=== PATIENT | male | born 1940 | race Caucasian/White ===

== ENCOUNTER 2017-04-21 20:23 | Inpatient (IN) | payer OTHER ==
[~2017-04-21] VITALS: Ht 167.6 cm; Wt 74.5 kg
[2017-04-21] MEDS ORDERED: DIPH,PERTUSS(ACELL),TET VAC/PF 0.5 ML IM-VACC ONE ×2 (21:00→21:05)
[2017-04-21] MEDS ORDERED: SODIUM CHLORIDE FLUSH 10ML SYR IVF ONE (21:00)
[2017-04-21 21:04] LABS: BLOOD UREA NITROGEN 31 mg/dL (7-18)
[2017-04-21] MEDS ORDERED: BACITRACIN ZINC OINT 500U/GM, 0.9 GM ONE (21:05)
[2017-04-21 21:10] LABS: IS PT STATUS REG ER OR PRE ER? YES
[2017-04-21] MEDS ORDERED: LEVOFLOXACIN/PMX 750MG/150ML 150 ML ONE (21:51)
[2017-04-21] MEDS ORDERED: LEVOFLOXACIN/PMX 750MG/150ML 150 ML IV ONE (22:00)
[2017-04-21] MEDS ORDERED: DOCUSATE 100 MG CAPSULE PO PRN (23:30)
[2017-04-21] MEDS ORDERED: POLYETHYLENE GLYCOL 17 GM PACKET PO PRN (23:30)
[2017-04-21 23:36] VITALS: BP 150/83
[2017-04-22 07:27] VITALS: BP 134/84
[2017-04-22] MEDS ORDERED: LEFLUNOMIDE 20 MG TABLET PO SCH (09:00)
[2017-04-22 09:28] LABS: OCCBLD OBC PASS
[2017-04-22] MEDS ORDERED: OMNIPAQUE 350 MG/ML, 100ML BOTTLE ONE (10:55)
[2017-04-22 13:39] VITALS: BP 145/76
[2017-04-22 17:02] LABS: ASPARTATE AMINO TRANSFERASE 26 U/L (15-37); BLOOD UREA NITROGEN 17 mg/dL (7-18)
[2017-04-22] MEDS: HEPARIN 5,000 UNITS/ML, 1ML SQ SCH (18:23)
[2017-04-22] MEDS: DEXAMETHASONE 4 MG/ML, 1ML IVPush SCH ×2 (18:23→21:42)
[2017-04-22 21:45] VITALS: BP 138/85
[2017-04-22] MEDS ORDERED: DIPHENHYDRAMINE 25 MG CAPSULE ONE (22:00)
[2017-04-22] MEDS ORDERED: DIPHENHYDRAMINE 25 MG CAPSULE PO PRN (22:00)
[2017-04-23] MEDS: HEPARIN 5,000 UNITS/ML, 1ML SQ SCH ×3 (01:43→18:38)
[2017-04-23 01:55] VITALS: BP 143/79
[2017-04-23] MEDS: DEXAMETHASONE 4 MG/ML, 1ML IVPush SCH ×2 (05:15→11:36)
[2017-04-23 06:40] VITALS: BP 135/76
[2017-04-23] MEDS ORDERED: LIDOCAINE/PRILOCAINE CRM W/TEG 5GM TP PRN (07:30)
[2017-04-23] MEDS: OMEPRAZOLE 20 MG CAPSULE.DR PO SCH (07:30)
[2017-04-23] MEDS ORDERED: FENTANYL PF 100 MCG/2ML ONE (09:11)
[2017-04-23] MEDS ORDERED: FLUMAZENIL 0.1 MG/1 ML, 5ML ONE (09:11)
[2017-04-23] MEDS ORDERED: NALOXONE 1 MG/ML, 2ML ONE (09:11)
[2017-04-23] MEDS ORDERED: MIDAZOLAM 1 MG/ML, 5ML ONE (09:11)
[2017-04-23 14:51] VITALS: BP 119/74
[2017-04-23] MEDS ORDERED: HYDROcodone/APAP 5/325 TABLET PO PRN (16:00)
[2017-04-23] MEDS: DEXAMETHASONE 4 MG TABLET PO SCH (17:12)
[2017-04-23 19:00] VITALS: BP 123/79
[2017-04-24 01:09] VITALS: BP 115/69
[2017-04-24] MEDS: HEPARIN 5,000 UNITS/ML, 1ML SQ SCH ×2 (01:32→08:46)
[2017-04-24 07:45] VITALS: BP 150/81
[2017-04-24] MEDS: OMEPRAZOLE 20 MG CAPSULE.DR PO SCH (08:46)
[2017-04-24] MEDS: DEXAMETHASONE 4 MG TABLET PO SCH ×2 (08:46→12:33)
[2017-04-24 12:47] VITALS: BP 123/73
[2017-04-24] MEDS ORDERED: NYST1000 PO ×2 (15:56→16:57)
[2017-04-24] MEDS ORDERED: DEXA4TAB PO ×2 (16:41→16:56)
== END 2017-04-24 17:30 | disposition home health service (06) | DRG 180 ==
LOC: ED 22:25 → EDIP 22:26 → INTOOBSV 22:26 → ED 22:45 → 3NW 23:29 → OBSVTOIN 04-22 08:34 → DCLOUNGE 04-24 16:29
PROVIDERS: ADMIT Family Medicine; ATTEND Family Medicine
PROC: 0BBK3ZX Excision of Right Lung, Percutaneous Approach, Diagnostic (ICD-10-PCS; principal; 2017-04-23)
DX: C34.91 Malignant neoplasm of unspecified part of right bronchus or lung (principal); G93.6 Cerebral edema; J15.9 Unspecified bacterial pneumonia; C79.31 Secondary malignant neoplasm of brain; J98.11 Atelectasis; M19.90 Unspecified osteoarthritis, unspecified site; B37.9 Candidiasis, unspecified; K76.9 Liver disease, unspecified; M06.9 Rheumatoid arthritis, unspecified; W18.09XA Striking against other object with subsequent fall, initial encounter; Y93.K1 Activity, walking an animal; Y92.89 Other specified places as the place of occurrence of the external cause; Z79.52 Long term (current) use of systemic steroids
CPT/HCPCS: 32405; 36415; 70450; 70553; 71010; 71260; 74177; 77012; 78306; 80048; 80053; 81003; 82040; 82272; 82274; 82378; 83605; 84145; 84484; 85025; 85610; 85730; 87040; 88305; 90471; 90715; 93005; 96365; 99156; 99157; G0378; J1100; J1644; J1956; J2250; J3010; Q9967; A9503; C9898; J2310; Q0163

== ENCOUNTER → 2017-09-21 | Outpatient (CLI) | payer OTHER ==
[~2017-09-21] MED LIST: DEXA1.5T5 PO; DEXA4TAB PO; NYST1000 PO; OSIM80TA PO
== END | disposition home or self-care (01) ==
LOC: CFH 10:36
PROVIDERS: ATTEND Internal Medicine Hematology & Oncology
DX: C34.91 Malignant neoplasm of unspecified part of right bronchus or lung (principal); J98.11 Atelectasis
CPT/HCPCS: 71020; 76700

== ENCOUNTER → 2017-11-27 | Outpatient (CLI) | payer OTHER ==
[~2017-11-27] MED LIST changes: +GADOBUTROL 10 MMOL/10 ML VIAL ONE; +OMNIPAQUE 350 MG/ML, 100ML BOTTLE ONE
== END | disposition home or self-care (01) ==
LOC: CFH 11:13
PROVIDERS: ATTEND Internal Medicine Hematology & Oncology
DX: G31.89 Other specified degenerative diseases of nervous system (principal); G93.89 Other specified disorders of brain; J98.4 Other disorders of lung; C34.91 Malignant neoplasm of unspecified part of right bronchus or lung; C79.31 Secondary malignant neoplasm of brain
CPT/HCPCS: 70553; 71260; 74177; 82565; A9585; Q9967

== ENCOUNTER → 2018-06-29 | Outpatient (CLI) | payer OTHER ==
[~2018-06-29] MED LIST changes: -GADOBUTROL 10 MMOL/10 ML VIAL ONE; +GADOBUTROL 7.5 MMOL/7.5 ML PFS ONE; -OMNIPAQUE 350 MG/ML, 100ML BOTTLE ONE
== END | disposition home or self-care (01) ==
LOC: CFH 08:28
PROVIDERS: ATTEND Radiology Radiation Oncology
DX: C79.31 Secondary malignant neoplasm of brain (principal); C34.91 Malignant neoplasm of unspecified part of right bronchus or lung
CPT/HCPCS: 70553; 82565; A9585

== ENCOUNTER → 2018-07-30 | Outpatient (CLI) | payer OTHER ==
[~2018-07-30] MED LIST changes: +GADOBUTROL 10 MMOL/10 ML PFS ONE; -GADOBUTROL 7.5 MMOL/7.5 ML PFS ONE
== END | disposition home or self-care (01) ==
LOC: CFH 10:45
PROVIDERS: ATTEND Radiology Radiation Oncology
DX: G93.9 Disorder of brain, unspecified (principal); C79.31 Secondary malignant neoplasm of brain; C34.90 Malignant neoplasm of unspecified part of unspecified bronchus or lung
CPT/HCPCS: 70553; 82565; A9585

== ENCOUNTER → 2018-08-02 | Outpatient (CLI) | payer OTHER ==
[~2018-08-02] MED LIST changes: -GADOBUTROL 10 MMOL/10 ML PFS ONE
== END | disposition home or self-care (01) ==
LOC: ROC 07:45
PROVIDERS: ATTEND Radiology Radiation Oncology
DX: C79.31 Secondary malignant neoplasm of brain (principal)
CPT/HCPCS: 99213; G0463

== ENCOUNTER → 2018-12-06 | Outpatient (CLI) | payer OTHER | END | disposition home or self-care (01) | LOC: ROC 09:16 | PROVIDERS: ATTEND Radiology Radiation Oncology | DX: Z08 Encounter for follow-up examination after completed treatment for malignant neoplasm (principal); C79.31 Secondary malignant neoplasm of brain | CPT/HCPCS: 99213; G0463 ==

== ENCOUNTER → 2019-02-09 | Outpatient (CLI) | payer MEDICARE | END | disposition home or self-care (01) | LOC: EDSTATUS 01-25 13:50 → ROC 02-01 13:53 | PROVIDERS: ATTEND Radiology Radiation Oncology | DX: C79.51 Secondary malignant neoplasm of bone (principal) | CPT/HCPCS: 99213; G0463 ==

== ENCOUNTER → 2019-02-17 | Outpatient (CLI) | payer MEDICARE ==
[~2019-02-17] MED LIST changes: +GADOBUTROL 10 MMOL/10 ML PFS ONE
== END | disposition home or self-care (01) ==
LOC: CFH 09:42
PROVIDERS: ATTEND Radiology Radiation Oncology
DX: C79.31 Secondary malignant neoplasm of brain (principal)
CPT/HCPCS: 70553; A9585

== ENCOUNTER → 2019-04-04 | Outpatient (CLI) | payer MEDICARE ==
[~2019-04-04] MED LIST changes: -GADOBUTROL 10 MMOL/10 ML PFS ONE
== END | disposition home or self-care (01) ==
LOC: ROC 09:34
PROVIDERS: ATTEND Radiology Radiation Oncology
DX: C79.31 Secondary malignant neoplasm of brain (principal); C79.51 Secondary malignant neoplasm of bone; R53.1 Weakness
CPT/HCPCS: 99213; G0463

== ENCOUNTER 2019-05-10 08:22 | Outpatient (CLI) | payer MEDICARE ==
[2019-05-10] MEDS ORDERED: OMNIPAQUE 350 MG/ML, 100ML BOTTLE ONE (09:20)
[2019-05-10] MEDS ORDERED: GADOBUTROL 7.5 MMOL/7.5 ML VIAL ONE (10:04)
== END 2019-05-10 23:59 | disposition home or self-care (01) ==
LOC: CFH 08:22
PROVIDERS: ATTEND Radiology Radiation Oncology
DX: C79.31 Secondary malignant neoplasm of brain (principal); C79.51 Secondary malignant neoplasm of bone; C78.7 Secondary malignant neoplasm of liver and intrahepatic bile duct; C78.00 Secondary malignant neoplasm of unspecified lung; C80.1 Malignant (primary) neoplasm, unspecified; R91.8 Other nonspecific abnormal finding of lung field; G95.89 Other specified diseases of spinal cord; M84.48XA Pathological fracture, other site, initial encounter for fracture; I70.0 Atherosclerosis of aorta; K57.90 Diverticulosis of intestine, part unspecified, without perforation or abscess without bleeding; K40.20 Bilateral inguinal hernia, without obstruction or gangrene, not specified as recurrent; N40.0 Benign prostatic hyperplasia without lower urinary tract symptoms
CPT/HCPCS: 70553; 71260; 74177; A9585; Q9967

== ENCOUNTER 2019-05-11 07:41 | Outpatient (CLI) | payer MEDICARE | END 2019-05-11 23:59 | disposition home or self-care (01) | LOC: ROC 07:41 | PROVIDERS: ATTEND Radiology Radiation Oncology | DX: C79.31 Secondary malignant neoplasm of brain (principal); C78.7 Secondary malignant neoplasm of liver and intrahepatic bile duct; C34.90 Malignant neoplasm of unspecified part of unspecified bronchus or lung | CPT/HCPCS: 99213; G0463 ==